=== PATIENT | female | born 2000 | race Caucasian/White ===

== ENCOUNTER 2019-06-04 19:34 | Emergency (ER) | payer BC ==
[~2019-06-04] VITALS: Ht 160 cm; Wt 56.8 kg
[2019-06-04 19:43] VITALS: TEMP 97.3
[2019-06-04 21:52] LABS: COLLECTION METHOD CLEAN CATCH
[2019-06-04 21:55] LABS: BASO % 0.2 % (0.0-2.0); EOS % 0.2 % (0-4.0); GRAN # 6.5 (1.4-6.5); GRAN % 74.6 % (42.2-75.2); HEMATOCRIT 42.7 % (37.0-47.0); HEMOGLOBIN 14.3 g/dl (12.5-16.0); LYMPH # 1.7 (1.2-3.4); LYMPH % 19.8 % (20.0-51.0); MEAN CELL VOLUME 97 fl (80.0-100.0); MEAN CORPUSCULAR HEMOGLOBIN 33 pg (27.0-31.0); MEAN CORPUSCULAR HGB CONC 34 g/dl (33.0-37.0); MEAN PLATELET VOLUME 9.8 fl (7.4-10.4); MONO # 0.4 (0.1-0.6); MONO % 4.7 % (1.7-9.3); PLATELET COUNT 276 K/mm3 (130-400); REDCELL DISTRIBUTION WIDTH-CV 12.1 % (11.5-14.5)
[2019-06-04 22:07] LABS: MUCOUS Present /lpf; PH 5 (5-8); URINE APPEARANCE Hazy; URINE BACTERIA Rare /hpf; URINE BILIRUBIN Negative (NEGATIVE); URINE BLOOD 1+ (NEGATIVE); URINE COLOR Yellow; URINE GLUCOSE Negative (NEGATIVE); URINE KETONE 1+ (NEGATIVE); URINE LEUKOCYTE ESTERASE 2+ (NEGATIVE); URINE NITRATE Negative (NEGATIVE); URINE PROTEIN(semi-quant) Negative (NEGATIVE); URINE UROBILINOGEN Negative (NEGATIVE)
[2019-06-04 22:08] LABS: ALANINE AMINOTRANSFERASE 37 U/L (9-52); ALBUMIN 5.1 gm/dL (3.5-5.0); ALKALINE PHOSPHATASE 54 U/L (50-136); ANION GAP 12 mmol/L (7-16); AST,SGOT 54 U/L (15-37); BILIRUBIN,TOTAL 0.4 mg/dL (0.0-1.0); BLOOD UREA NITROGEN 11 mg/dL (7-17); CALCIUM 9.5 mg/dL (8.4-10.2); CARBON DIOXIDE 20 mmol/L (22-30); CHLORIDE 105 mmol/L (98-107); CREATININE, serum 0.84 (0.52-1.25); GLUCOSE 103 mg/dL (74-106); LIPASE 63 U/L (23-300); POTASSIUM 4.1 mmol/L (3.4-5.0); SODIUM 137 mmol/L (137-145); TOTAL PROTEIN 8.4 gm/dL (6.4-8.2)
[2019-06-04 22:10] LABS: C-REACTIVE PROTEIN < 0.5 mg/dL (0.0-0.9)
[2019-06-04] MEDS ORDERED: CEPHALEXIN500 M1 PO (22:31)
[2019-06-04] MEDS ORDERED: ZOFRAN 4MG T4 MG/TAB PO (22:31)
[2019-06-04] MEDS ORDERED: DIFLUCAN150 MG PO (22:33)
[2019-06-04 22:53] VITALS: BP 115/80; PULSE 90
== END 2019-06-04 22:54 | disposition home or self-care (01) ==
LOC: COL.ER 19:34
PROVIDERS: Emergency Medicine
DX: N39.0 Urinary tract infection, site not specified (principal); F41.9 Anxiety disorder, unspecified; F90.9 Attention-deficit hyperactivity disorder, unspecified type

== ENCOUNTER → 2020-06-10 | Outpatient (CLI) | payer BC ==
[~2020-06-10] MED LIST: CEPHALEXIN500 M1 PO; DIFLUCAN150 MG PO; ZOFRAN 4MG T4 MG/TAB PO
== END ==
LOC: ZCOL.LAB 16:20
DX: Z20.828 Contact with and (suspected) exposure to other viral communicable diseases (principal)

== ENCOUNTER → 2024-06-14 | Outpatient (CLI) | payer OTHER | LOC: COL.RAD 14:45 | DX: N39.0 Urinary tract infection, site not specified (principal) ==